=== PATIENT | female | born 1965 | race African-American/Black ===

== ENCOUNTER 2018-10-06 09:59 | Day surgery (SDC) | payer OTHER ==
[2018-10-06] MEDS ORDERED: PROPOFOL 40 ML (11:20)
[2018-10-06] MEDS ORDERED: PROPOFOL 200 MG INJ (11:20)
[2018-10-06] MEDS ORDERED: LIDOCAINE 2% (SDV) 5 ML INJ (11:20)
== END 2018-10-06 14:20 | disposition home or self-care (01) ==
LOC: GIL 09:59
DX: Z12.11 Encounter for screening for malignant neoplasm of colon (principal); K64.8 Other hemorrhoids; K63.89 Other specified diseases of intestine; I10 Essential (primary) hypertension; E78.5 Hyperlipidemia, unspecified
CPT/HCPCS: 45378